=== PATIENT | male | born 1965 | race African-American/Black ===

== ENCOUNTER 2018-02-06 19:17 | Inpatient (IN) ==
[2018-02-06] MEDS ORDERED: methylPREDNISolone SOD SUC 125 MG/2 ML VIAL IV STA (19:46)
[2018-02-06] MEDS ORDERED: ALBUTEROL/IPRATROPIUM 3 ML NEB RESP TX STA (19:46)
[2018-02-06 20:06] LABS: Basophils # 0.1 10*3/uL (0.0-0.2); Basophils % 0.4 % (0.0-0.8); Eosinophils % 0.1 % (0.00-10.9); Hematocrit 49.1 VOL% (42.0-52.0); Immature Granulocytes % 0.7 %; Immature Granulocytes Absolute 0.11 #; Lymphocytes # 0.9 10*3/uL (1.4-4.0); Mean Corpuscular HGB Conc 32.6 GM/DL (32-36); Mean Corpuscular Hemoglobin 31 PG (27-34); Mean Corpuscular Volume 94.1 FL (87-102); Mean Platelet Volume 11.5 FL (9.6-12.0); Monocytes # 0.6 10*3/uL (0.11-0.8); Monocytes % 3.9 % (1.7-12.7); Neutrophils % 88.9 % (38.7-73.9); Platelet Count 187 T/CUMM (130-400); Red Blood Count 5.22 MC/CUMM (3.8-5.5); Red Cell Distribution Width 15.4 % (9.3-17.3); White Blood Count 15.8 T/CUMM (4-12)
[2018-02-06 20:28] LABS: Albumin 4.4 G/DL (3.4-5.0); Bilirubin,Total 1.3 MG/DL (0.2-1.0); Calcium 9.1 MG/DL (8.5-10.1); Osmolality,Calculated 284.5 MOS/KG (273-304); Potassium 4.8 MMOL/L (3.5-5.1); Total Protein 7.4 G/DL (6.4-8.3)
[2018-02-06] MEDS ORDERED: GLUCAGON 1 MG VIAL IM PRN ×2 (21:40)
[2018-02-06] MEDS ORDERED: ALBUTEROL 2.5 MG/3 ML NEB RESP TX PRN (21:40)
[2018-02-06] MEDS ORDERED: DEXTROSE 50% 25 GM/50 ML VIAL IV PRN ×2 (21:40)
[2018-02-06] MEDS ORDERED: BENZONATATE 100 MG CAPSULE PO PRN (21:48)
[2018-02-06] MEDS ORDERED: SODIUM CHLORIDE 0.65% NASAL SPRAY 45 ML BOTTLE BOTH NARES PRN (21:48)
[2018-02-06] MEDS ORDERED: cefTRIAXone 1,000 MG in SYRINGE 1 EACH IV SCH (22:00)
[2018-02-06 22:41] LABS: VBG Base Excess -6.7 MEQ/L (0-4); VBG HCO3 18.9 MEQ/L (24-28); VBG Oxygen Saturation 69.9 %; VBG PCO2 38.1 MMHG (41-51); VBG PH 7.313
[2018-02-06] MEDS: MYCOPHENOLATE MOFETIL 250 MG CAPSULE PO SCH (23:35)
[2018-02-06] MEDS: SULFAMETHOX/TRIMETHOPRIM 800-160 MG TABLET PO SCH (23:36)
[2018-02-06] MEDS: SILDENAFIL 20 MG TABLET PO SCH (23:36)
[2018-02-06] MEDS: ATORVASTATIN 40 MG TABLET PO SCH (23:36)
[2018-02-06] MEDS: CEFEPIME 2,000 MG in SODIUM CHLORIDE 0.9% 100 ML IV SCH (23:47)
[2018-02-07] MEDS: ALBUTEROL/IPRATROPIUM 3 ML NEB RESP TX SCH ×4 (00:42→20:12)
[2018-02-07] MEDS: AZITHROMYCIN INJ 500 MG in SODIUM CHLORIDE 0.9% 250 ML IV SCH ×2 (00:57→23:32)
[2018-02-07 06:08] LABS: Basophils % 0.1 % (0.0-0.8); Hematocrit 41.2 VOL% (42.0-52.0); Immature Granulocytes % 0.8 %; Immature Granulocytes Absolute 0.08 #; Lymphocytes # 0.6 10*3/uL (1.4-4.0); Lymphocytes % 5.6 % (21.2-54.2); Mean Corpuscular Hemoglobin 31 PG (27-34); Mean Corpuscular Volume 92.4 FL (87-102); Mean Platelet Volume 11.5 FL (9.6-12.0); Monocytes # 0.1 10*3/uL (0.11-0.8); Neutrophils # 9.1 10*3/uL (1.4-7.4); Neutrophils % 92.5 % (38.7-73.9); Platelet Count 157 T/CUMM (130-400); Red Blood Count 4.46 MC/CUMM (3.8-5.5); Red Cell Distribution Width 15.1 % (9.3-17.3)
[2018-02-07 06:09] LABS: Hemoglobin 13.6 GM/DL (14.0-18.0); White Blood Count 9.8 T/CUMM (4-12)
[2018-02-07 06:12] LABS: Albumin 3.2 G/DL (3.4-5.0); Calcium 8.4 MG/DL (8.5-10.1); Osmolality,Calculated 285.8 MOS/KG (273-304); Potassium 4.4 MMOL/L (3.5-5.1); Total Protein 6.1 G/DL (6.4-8.3)
[2018-02-07 06:19] LABS: Hypochromasia Slight; Lymphocytes 4 % (20-55); Platelet Estimate Adequate; Segmented Neutrophils 95 % (50-85); Total Cells Counted 100
[2018-02-07] MEDS: methylPREDNISolone SOD SUC 40 MG/1 ML VIAL IV SCH ×3 (06:48→21:33)
[2018-02-07] MEDS: CEFEPIME 2,000 MG in SODIUM CHLORIDE 0.9% 100 ML IV SCH (06:51)
[2018-02-07 07:01] LABS: Hepatitis A Ab IgM Quant 0.13 Index; Hepatitis A Ab IgM Result Negative (Negative); Hepatitis B Core IgM Quant 0.07 Index; Hepatitis B Core IgM Result Negative (Negative); Hepatitis B Surface Ag Quant < 0.10 Index; Hepatitis B Surface Ag Result Negative (Negative); Hepatitis C Virus Ab Quant 0.11 Index; Hepatitis C Virus Ab Result Negative (Negative)
[2018-02-07] MEDS ORDERED: INDOMETHACIN 25 MG CAPSULE PO SCH (09:00)
[2018-02-07] MEDS ORDERED: FUROSEMIDE 40 MG TABLET PO SCH (09:00)
[2018-02-07] MEDS: MYCOPHENOLATE MOFETIL 250 MG CAPSULE PO SCH ×2 (09:16→21:28)
[2018-02-07] MEDS: INSULIN REGULAR 100 UNIT/ML SUBCUT SCH ×4 (09:16→21:31)
[2018-02-07] MEDS: PANTOPRAZOLE 40 MG TABLET PO SCH (09:20)
[2018-02-07] MEDS: FUROSEMIDE 40 MG/4 ML VIAL IV SCH (09:20)
[2018-02-07] MEDS: ENOXAPARIN 40 MG/0.4 ML SYRINGE SUBCUT SCH (09:21)
[2018-02-07] MEDS: MULTIVITAMIN (CENTRUM) TABLET PO SCH (09:21)
[2018-02-07] MEDS: SILDENAFIL 20 MG TABLET PO SCH ×3 (09:21→21:29)
[2018-02-07] MEDS: CEFEPIME 2,000 MG in SYRINGE 1 EACH IV SCH ×2 (15:20→23:25)
[2018-02-07] MEDS: MONTELUKAST 10 MG TABLET PO SCH (21:28)
[2018-02-07] MEDS: ATORVASTATIN 40 MG TABLET PO SCH (21:29)
[2018-02-08] MEDS: ALBUTEROL/IPRATROPIUM 3 ML NEB RESP TX SCH ×4 (01:55→19:24)
[2018-02-08] MEDS: methylPREDNISolone SOD SUC 40 MG/1 ML VIAL IV SCH ×3 (06:33→21:01)
[2018-02-08] MEDS: CEFEPIME 2,000 MG in SYRINGE 1 EACH IV SCH ×3 (06:39→23:08)
[2018-02-08] MEDS: PANTOPRAZOLE 40 MG TABLET PO SCH (08:48)
[2018-02-08] MEDS: ENOXAPARIN 40 MG/0.4 ML SYRINGE SUBCUT SCH (08:48)
[2018-02-08] MEDS: MULTIVITAMIN (CENTRUM) TABLET PO SCH (08:48)
[2018-02-08] MEDS: FUROSEMIDE 40 MG/4 ML VIAL IV SCH (08:48)
[2018-02-08] MEDS: SILDENAFIL 20 MG TABLET PO SCH ×2 (08:48→14:34)
[2018-02-08] MEDS: INSULIN REGULAR 100 UNIT/ML SUBCUT SCH ×4 (08:48→21:01)
[2018-02-08] MEDS: MYCOPHENOLATE MOFETIL 250 MG CAPSULE PO SCH ×2 (08:48→20:58)
[2018-02-08] MEDS: PSEUDOEPHEDRINE 30 MG TABLET PO PRN (08:53)
[2018-02-08] MEDS: BENZONATATE 100 MG CAPSULE PO SCH (20:59)
[2018-02-08] MEDS: ATORVASTATIN 40 MG TABLET PO SCH (21:00)
[2018-02-08] MEDS: MONTELUKAST 10 MG TABLET PO SCH (21:18)
[2018-02-08] MEDS: SULFAMETHOX/TRIMETHOPRIM 800-160 MG TABLET PO SCH (23:08)
[2018-02-09] MEDS: ALBUTEROL/IPRATROPIUM 3 ML NEB RESP TX SCH ×5 (00:08→23:45)
[2018-02-09] MEDS: AZITHROMYCIN INJ 500 MG in SODIUM CHLORIDE 0.9% 250 ML IV SCH (03:17)
[2018-02-09] MEDS: SILDENAFIL 20 MG TABLET PO SCH ×4 (06:27→21:14)
[2018-02-09] MEDS: methylPREDNISolone SOD SUC 40 MG/1 ML VIAL IV SCH ×3 (06:33→21:16)
[2018-02-09] MEDS: CEFEPIME 2,000 MG in SYRINGE 1 EACH IV SCH ×2 (06:34→15:44)
[2018-02-09] MEDS: INSULIN REGULAR 100 UNIT/ML SUBCUT SCH ×4 (09:01→21:16)
[2018-02-09] MEDS: BENZONATATE 100 MG CAPSULE PO SCH ×3 (09:01→21:15)
[2018-02-09] MEDS: PANTOPRAZOLE 40 MG TABLET PO SCH (09:01)
[2018-02-09] MEDS: ENOXAPARIN 40 MG/0.4 ML SYRINGE SUBCUT SCH (09:01)
[2018-02-09] MEDS: MYCOPHENOLATE MOFETIL 250 MG CAPSULE PO SCH ×2 (09:01→21:14)
[2018-02-09] MEDS: MULTIVITAMIN (CENTRUM) TABLET PO SCH (09:01)
[2018-02-09] MEDS: PSEUDOEPHEDRINE 30 MG TABLET PO PRN (09:01)
[2018-02-09] MEDS: FUROSEMIDE 40 MG TABLET PO SCH (12:03)
[2018-02-09] MEDS: MONTELUKAST 10 MG TABLET PO SCH (21:13)
[2018-02-10] MEDS: CEFEPIME 2,000 MG in SYRINGE 1 EACH IV SCH ×3 (01:19→15:56)
[2018-02-10] MEDS: AZITHROMYCIN INJ 500 MG in SODIUM CHLORIDE 0.9% 250 ML IV SCH (01:20)
[2018-02-10] MEDS: ATORVASTATIN 40 MG TABLET PO SCH ×2 (01:20→21:45)
[2018-02-10] MEDS: methylPREDNISolone SOD SUC 40 MG/1 ML VIAL IV SCH ×3 (06:01→21:46)
[2018-02-10] MEDS: ALBUTEROL/IPRATROPIUM 3 ML NEB RESP TX SCH ×3 (07:46→19:57)
[2018-02-10] MEDS: INSULIN REGULAR 100 UNIT/ML SUBCUT SCH ×4 (09:18→21:47)
[2018-02-10] MEDS: ENOXAPARIN 40 MG/0.4 ML SYRINGE SUBCUT SCH (09:18)
[2018-02-10] MEDS: MULTIVITAMIN (CENTRUM) TABLET PO SCH (09:18)
[2018-02-10] MEDS: SILDENAFIL 20 MG TABLET PO SCH ×3 (09:18→21:46)
[2018-02-10] MEDS: FUROSEMIDE 40 MG TABLET PO SCH (09:18)
[2018-02-10] MEDS: MYCOPHENOLATE MOFETIL 250 MG CAPSULE PO SCH ×2 (09:18→21:45)
[2018-02-10] MEDS: PANTOPRAZOLE 40 MG TABLET PO SCH (09:19)
[2018-02-10] MEDS: BENZONATATE 100 MG CAPSULE PO SCH ×3 (09:19→21:47)
[2018-02-10] MEDS: PSEUDOEPHEDRINE 30 MG TABLET PO PRN (15:58)
[2018-02-10] MEDS: MONTELUKAST 10 MG TABLET PO SCH (21:45)
[2018-02-11] MEDS: CEFEPIME 2,000 MG in SYRINGE 1 EACH IV SCH ×4 (01:13→23:03)
[2018-02-11] MEDS: AZITHROMYCIN INJ 500 MG in SODIUM CHLORIDE 0.9% 250 ML IV SCH (01:16)
[2018-02-11] MEDS: ALBUTEROL/IPRATROPIUM 3 ML NEB RESP TX SCH ×4 (01:36→20:06)
[2018-02-11 06:29] LABS: Basophils % 0.1 % (0.0-0.8); Hematocrit 38.7 VOL% (42.0-52.0); Hemoglobin 12.6 GM/DL (14.0-18.0); Immature Granulocytes % 1.2 %; Immature Granulocytes Absolute 0.14 #; Lymphocytes # 0.5 10*3/uL (1.4-4.0); Lymphocytes % 4.1 % (21.2-54.2); Mean Corpuscular HGB Conc 32.6 GM/DL (32-36); Mean Corpuscular Hemoglobin 30 PG (27-34); Mean Corpuscular Volume 91.9 FL (87-102); Mean Platelet Volume 11.8 FL (9.6-12.0); Monocytes # 0.5 10*3/uL (0.11-0.8); Neutrophils # 10.7 10*3/uL (1.4-7.4); Neutrophils % 90.6 % (38.7-73.9); Platelet Count 176 T/CUMM (130-400); Red Blood Count 4.21 MC/CUMM (3.8-5.5); Red Cell Distribution Width 15.4 % (9.3-17.3); White Blood Count 11.8 T/CUMM (4-12)
[2018-02-11] MEDS: methylPREDNISolone SOD SUC 40 MG/1 ML VIAL IV SCH ×3 (06:38→21:46)
[2018-02-11 06:55] LABS: Hypochromasia 1+; Lymphocytes 3 % (20-55); Platelet Estimate Adequate; Segmented Neutrophils 89 % (50-85); Total Cells Counted 100
[2018-02-11 07:01] LABS: Bilirubin,Direct 0.19 MG/DL (0.0-0.20); Bilirubin,Indirect 0.5 MG/DL (0.0-1.0); Bilirubin,Total 0.7 MG/DL (0.2-1.0); Calcium 8.7 MG/DL (8.5-10.1); Osmolality,Calculated 289.8 MOS/KG (273-304); Potassium 4.8 MMOL/L (3.5-5.1); Total Protein 5.5 G/DL (6.4-8.3)
[2018-02-11] MEDS: INSULIN REGULAR 100 UNIT/ML SUBCUT SCH ×4 (09:56→21:47)
[2018-02-11] MEDS: ENOXAPARIN 40 MG/0.4 ML SYRINGE SUBCUT SCH (09:56)
[2018-02-11] MEDS: MYCOPHENOLATE MOFETIL 250 MG CAPSULE PO SCH ×2 (09:58→21:47)
[2018-02-11] MEDS: SILDENAFIL 20 MG TABLET PO SCH ×3 (09:59→21:47)
[2018-02-11] MEDS: MULTIVITAMIN (CENTRUM) TABLET PO SCH (09:59)
[2018-02-11] MEDS: FUROSEMIDE 40 MG TABLET PO SCH (09:59)
[2018-02-11] MEDS: PANTOPRAZOLE 40 MG TABLET PO SCH (09:59)
[2018-02-11] MEDS: BENZONATATE 100 MG CAPSULE PO SCH ×3 (09:59→21:49)
[2018-02-11] MEDS: NYSTATIN 500,000 UNIT/5 ML UDCUP SWISH/SWAL SCH ×4 (10:15→21:49)
[2018-02-11] MEDS: MONTELUKAST 10 MG TABLET PO SCH (21:47)
[2018-02-11] MEDS: SULFAMETHOX/TRIMETHOPRIM 800-160 MG TABLET PO SCH (21:48)
[2018-02-11] MEDS: ATORVASTATIN 40 MG TABLET PO SCH (21:49)
[2018-02-12] MEDS: ALBUTEROL/IPRATROPIUM 3 ML NEB RESP TX SCH ×3 (00:34→13:06)
[2018-02-12] MEDS: AZITHROMYCIN INJ 500 MG in SODIUM CHLORIDE 0.9% 250 ML IV SCH (00:54)
[2018-02-12] MEDS: methylPREDNISolone SOD SUC 40 MG/1 ML VIAL IV SCH (06:46)
[2018-02-12] MEDS: CEFEPIME 2,000 MG in SYRINGE 1 EACH IV SCH ×2 (09:09→15:02)
[2018-02-12] MEDS: FUROSEMIDE 40 MG TABLET PO SCH (09:10)
[2018-02-12] MEDS: NYSTATIN 500,000 UNIT/5 ML UDCUP SWISH/SWAL SCH ×2 (09:10→13:40)
[2018-02-12] MEDS: PANTOPRAZOLE 40 MG TABLET PO SCH (09:10)
[2018-02-12] MEDS: BENZONATATE 100 MG CAPSULE PO SCH ×2 (09:10→15:02)
[2018-02-12] MEDS: MULTIVITAMIN (CENTRUM) TABLET PO SCH (09:10)
[2018-02-12] MEDS: SILDENAFIL 20 MG TABLET PO SCH ×2 (09:10→15:02)
[2018-02-12] MEDS: ENOXAPARIN 40 MG/0.4 ML SYRINGE SUBCUT SCH (09:10)
[2018-02-12] MEDS: MYCOPHENOLATE MOFETIL 250 MG CAPSULE PO SCH (09:10)
[2018-02-12] MEDS: INSULIN REGULAR 100 UNIT/ML SUBCUT SCH ×2 (09:10→12:08)
[2018-02-12 11:53] VITALS: BP 94/66
[2018-02-12] MEDS ORDERED: predniSONE 20 MG TABLET PO SCH (12:30)
== END 2018-02-12 16:25 | disposition home or self-care (01) | DRG 197 ==
LOC: N.ED 19:17 → N.EDINP 21:40 → SUATTDRO 21:41 → N.5E 22:45
PROVIDERS: ADMIT Hospitalist